=== PATIENT | female | born 1970 | race Caucasian/White ===

== ENCOUNTER 2025-08-31 20:36 | Emergency (ER) | payer BC, SELFPAY ==
[2025-08-31 20:36] VITALS: BMI 28.3
[2025-08-31 21:28] VITALS: BP 166/112; PULSE 76; RESP 18; TEMP 36.6; O2SAT 96
--- NOTE | 2025-08-31 21:36 | PD.EDABDPN ---
ED Abdominal Pain RME/HPI General Chief Complaint: Abdominal Pain Stated complaint: LLQ PAIN Time seen by provider: 08/31/25 20:40 Arrival date/time: 08/31/25 20:36 Source: patient, RN notes reviewed and old records reviewed Mode of arrival: ambulatory Limitations: no limitations RME / HPI RME / HPI narrative: 54yof presents to ED for LLQ abdominal pain that initiated yesterday. Patient reports nausea and x2 episodes of diarrhea since onset. No fever, vomiting, flank pain or urinary symptoms reported. No medications or treatment today. Related Data Home Medications ?Medication ?Instructions ?Recorded ?Confirmed brexpiprazole 0.5 mg tablet 0.5 mg PO HS 10/28/18 10/28/18 (Rexulti) fluoxetine 40 mg capsule 40 mg PO QDAY 10/28/18 10/28/18 Previous Rx's ?Medication ?Instructions ?Recorded prednisone 20 mg tablet 40 mg (2 x 20 mg) PO QDAY #8 tabs 10/28/18 cefdinir 300 mg capsule 300 mg PO BID 5 days #10 caps 09/01/25 ibuprofen 600 mg tablet 600 mg PO Q6H PRN pain #20 tabs 09/01/25 ondansetron 4 mg disintegrating 4 mg PO Q6H PRN nausea and 09/01/25 tablet vomiting #10 tabs Allergies Allergy/AdvReac Type Severity Reaction Status Date / Time No Known Allergies Allergy Verified 10/28/18 13:01 Review of Systems Review of Systems Systems Reviewed: All systems reviewed, normal except as documented Constitutional Constitutional: Denies chills and Denies fever(s) Gastrointestinal Gastrointestinal: Reports abdominal pain, Denies fecal incontinence, Reports loose stools, Reports nausea and Denies vomiting Genitourinary Genitourinary: Denies dysuria, Denies flank pain and Denies hematuria Past Medical History Past Medical History ENDOCRINE: Positive Diabetes Mellitus Type 2 PSYCHO/SOCIAL: Positive Depression Surgical History SURGICAL: Positive Hysterectomy Social History SMOKING STATUS: Never smoker SUBSTANCE USE: does not use ALCOHOL: Never ED Exam General Limitations: Present no limitations General appearance: Present alert and in no apparent distress Head Head exam: Present atraumatic and normocephalic Eye Eye exam: Present normal appearance, PERRL and EOMI ENT ENT exam: Present normal exam and mucous membranes moist Neck Neck exam: Present normal inspection and full ROM Chest Chest inspection: Present normal inspection and symmetric chest wall rise Respiratory Respiratory exam: Present normal lung sounds bilaterally; Absent respiratory distress Cardiovascular Cardiovascular exam: Present regular rate and normal rhythm Abdominal Exam Abdominal exam: Present soft and tenderness (Mild, LLQ); Absent distention, guarding or rebound Extremities Exam Extremities exam: Present normal inspection and full ROM Back Exam Back exam: Absent CVA tenderness (R) or CVA tenderness (L) Neurological Exam Neurological exam: Present alert and oriented X3 Psychiatric Psychiatric exam: Present normal affect and normal mood Skin Skin exam: Present warm, dry, intact and normal color Course Quality Measures none Orders Category Date Time Status CT Screening NOW Care 08/31/25 22:[address] abdomen pelvis w con Stat Exams 08/31/25 22:25 Taken CBC Stat Lab 08/31/25 21:49 Completed CMP [Comprehensive Metabolic Panel] Stat Lab 08/31/25 21:49 Completed Lipase Stat Lab 08/31/25 21:49 Completed UA [Urinalysis] Stat Lab 08/31/25 21:48 Completed HYDROcodone*/APAP 5/325 [[place] 5/325] Med 08/31/25 21:51 Discontinued 1 tab PO X1 ONE Ondansetron Odt [Zofran Odt] Med 08/31/25 21:51 Discontinued 4 mg PO X1 ONE Vital Signs Vital signs: Vital Signs Temperature 97.9 F 08/31/25 21:28 Pulse Rate 76 08/31/25 21:28 Respiratory Rate 18 08/31/25 21:28 Blood Pressure 166/112 H 08/31/25 21:28 Pulse Oximetry (%) 96 08/31/25 21:28 Oxygen Delivery Method Room Air 08/31/25 21:28 Abdominal Pain MDM MDM Narrative MDM Narrative:: 54yof presents to ED for LLQ abdominal pain that initiated yesterday. Patient reports nausea and x2 episodes of diarrhea since onset. No fever, vomiting, flank pain or urinary symptoms reported. No medications or treatment today. Patient updated on labs and imaging. ED workup reassuring. Will treat for UTI. Encouraged close PCP follow-up. Stable for discharge, RTED precautions given. Patient data External records reviewed:: [facility] previous records (10/28/2018 ED visit for sinusitis) Clinical information provided by:: patient Social determinants that could affect healthcare access:: other (specify) (Poor access to healthcare) Patient has the following chronic illnesses:: Depression, diabetes How is presenting disease/condition affected by chronic disease/condition?: uneffected by Evaluation data The following diagnostics were reviewed and interpreted by me:: lab results and radiology exam(s) Lab and/or radiology exams considered but not ordered:: none Interpretation Summary: No leukocytosis No anemia UA +leuks/wbcs CT abd/pelvis: Impression: No acute abnormality in the Abdomen and Pelvis. Subtle indeterminate hypodense lesions in the liver and spleen. Bilateral trace pleural effusions/thickening. Nodular soft tissue lesion in the left breast. Recommend follow-up. Other findings as described above. Report Electronically Signed By: Daniel Hartman 09/01/2025 1:41:57 AM [EST] Medications / Prescriptions Medications or Prescriptions considered but not ordered:: none Medication administrations:: Medication Administration History Discontinued Medications Hydrocodone Bitart/Acetaminophen (Hydrocodone/Apap 5/325 Tablet) 1 tab PO X1 ONE Stop: 08/31/25 21:52 Last Admin: 08/31/25 22:18 Dose: 1 tab Documented By: PETER Ondansetron HCl (Ondansetron Odt 4 Mg Tabrap) 4 mg PO X1 ONE; Protocol Stop: 08/31/25 21:52 Last Admin: 08/31/25 22:18 Dose: 4 mg Documented By: PETER Above medications administered in ED Consultations Consultation(s) initiated? (list below): No Diagnosis Differential diagnosis abdominal pain: other (UTI, diverticulitis, diverticulosis, kidney stone, constipation, gastroenteritis) Most likely diagnosis given after review of the tests above:: UTI Admission Indicated Admission indicated?: not indicated Admission Request Was there a request for admission?: No Disposition Plan Disposition Plan: Discharge Discharge Attestation Discharge Attestation: The patient and all family members were given an opportunity to ask questions and understood the discharge instructions. Discharge instructions specifically effects, indications for sooner follow up or return to the emergency department, and the expected course of current diagnosis. Patient condition: Stable Discharge Plan Plan Patient Disposition: HOME (Self Care) Patient condition on transfer: Stable Prescriptions/Referrals Prescriptions/Med Rec: New cefdinir 300 mg capsule 300 mg PO BID 5 Days Qty: 10 0RF ibuprofen 600 mg tablet 600 mg PO Q6H PRN (Reason: pain) Qty: 20 0RF ondansetron 4 mg tablet,disintegrating 4 mg PO Q6H PRN (Reason: nausea and vomiting) Qty: 10 0RF No Action fluoxetine 40 mg Capsule 40 mg PO QDAY brexpiprazole [Rexulti] 0.5 mg Tablet 0.5 mg PO HS prednisone 20 mg tablet 40 mg PO QDAY Qty: 8 0RF Referrals: Temporary Provider,ED [Physician, Emergency Medicine] - In 1 week Problem List Clinical Impression: UTI (urinary tract infection), Abdominal pain, LLQ, Diarrhea Patient/Caregiver Discharge Instructions Education Materials: Urinary Tract Infections in Women Additional Instructions: Incidental finding on CT of left breast nodule. Please closely follow-up with pcp to schedule a mammogram for further evaluation. Print Language: Danish Stand Alone Forms: [employer] Award Info., Work/School Release, Patient Portal Info Letter PA/VISUAL INSPECTOR Supervising Physician PA/SNOW Supervising Physician: Zora
[2025-08-31 21:52] LABS: Collection Type, Urine Clean Catch
[2025-08-31 22:00] LABS: Bilirubin,Urine Negative (Negative); Blood,Urine Negative (Negative); Clarity,Urine Clear (Clear/Hazy); Color,Urine Lt-Yellow (Lt Yel-Yel); Glucose, Urine Negative (Negative); Ketones,Urine Negative (Negative); Leukocyte Esterase,Urine Positive (Negative); Nitrite,Urine Negative (Negative); PH,Urine 6.5 (5.0-7.0); Protein,Urine Negative (Neg - Trace); RBC,Urine 4 /hpf (0-3); Specific Gravity,Urine 1.023 (1.001-1.035); Squamous Epithelial Cell,Urine 3 /hpf (0-5); Urobilinogen,Urine Negative mg/dL (0.0-1.0); WBC,Urine 10 /hpf (0-5)
[2025-08-31 22:02] LABS: Basophils # (Auto) 0.1 Thou/mm3 (0.0-0.2); Basophils % (Auto) 1 % (0-2.5); Eosinophils # (Auto) 0.3 Thou/mm3 (0.0-0.5); Eosinophils % (Auto) 3 % (0-10); Hematocrit 42.5 % (36.0-46.0); Hemoglobin 13.6 g/dL (12.0-16.0); Immature Granulocytes Auto 0.02 Thou/mm3 (0.00-0.00); Lymphocytes # (Auto) 3.3 Thou/mm3 (1.0-4.8); Lymphocytes % (Auto) 32 % (10-50); Mean Corpuscular HGB Conc 32.0 g/dl (31.0-37.0); Mean Corpuscular Hemoglobin 28.2 pg (25.0-35.0); Mean Corpuscular Volume 88 fL (80-100); Monocytes # (Auto) 0.8 Thou/mm3 (0.0-0.8); Monocytes % (Auto) 8 % (0-12); Neutrophils # (Auto) 5.6 Thou/mm3 (1.8-7.7); Neutrophils % (Auto) 55 % (37-80); Nucleated Red Blood Cell # 0.00 Thou/mm3 (0.00-0.00); Nucleated Red Blood Cell % 0 /100 WBC (0); Platelet Count 296 Thou/mm3 (140-440); RDW Standard Deviation 46.0 fL (36.4-46.3); Red Blood Count 4.83 Miln/mm3 (4.00-5.20); White Blood Count 10.1 Thou/mm3 (3.6-11.0)
[2025-08-31] MEDS: HYDROcodone/APAP 5/325 TABLET 1 TAB PO (22:18)
[2025-08-31] MEDS: ONDANSETRON ODT 4 MG TABRAP PO (22:18)
[2025-08-31 22:23] LABS: Alanine Aminotransferase 70 U/L (10-49); Albumin, Serum 4.6 gm/dL (3.5-5.0); Albumin/Globulin Ratio 2.1 (1.2-2.2); Alkaline Phosphatase 116 U/L (46-116); Anion Gap 8 (7-16); Aspartate Amino Transferase 35 U/L (0-34); BUN/Creatinine Ratio 13 Ratio (12-20); Bilirubin,Total 0.2 mg/dL (0.3-1.2); Blood Urea Nitrogen 10 mg/dL (9-23); Calcium 9.4 mg/dL (8.3-10.6); Calcium (Corrected) 9.4 mg/dL (8.5-10.1); Carbon Dioxide 27.1 mMol/L (20.0-31.0); Chloride 107 mMol/L (98-107); Creatinine (Component) 0.8 mg/dL (0.6-1.3); Estimated Creatinine Clearance 75.0 mL/min (>60); Globulin 2.2 gm/dL (2.3-3.5); Glucose 105 mg/dL (74-106); Lipase 28 U/L (12-53); Osmolality,Calculated 282 (275-295); Potassium 4.2 mMol/L (3.4-5.1); Sodium 142 mMol/L (136-145); Total Protein 6.8 gm/dL (5.7-8.2); eGFR > 60 See Note
--- NOTE | 2025-08-31 22:25 | XR_ITS ---
Examination: CT abdomen with intravenous contrast CT pelvis with intravenous contrast 2-D coronal reconstructions 2-D sagittal reconstructions Date and time of exam: 09/01/2025, 12:29 a.m. INDICATION: Left lower quadrant pain. COMPARISON: Screening mammograms 03/14/2010. Diagnostic left-sided mammogram 04/04/2010. CTDI: vol (mGy) 10.41 DLP: (mGycm) 549 Technique: Multiple axial sections of the abdomen and pelvis have been obtained. 64 slice high-resolution scanner used. 3 mm axial sections have been obtained, post intravenous injection 2-D sagittal, coronal reconstructions obtained. Low dose protocols were performed. One or more of the following dose reduction techniques were used; automated exposure control, adjustment of the mA and/or KV according to patient size, use of iterative reconstruction technique. Findings: Lower chest: No cardiomegaly or pericardial effusion. Mild bilateral subsegmental atelectatic changes are present. Trace bilateral pleural effusions are seen. A solid lobulated mass in the posterior aspect of the lower outer quadrant of the left breast measures 2.5 x 1.7 cm in transaxial dimensions (axial image 5). Liver: Normal variant Zain lobe morphology. Indeterminate very small hypodense focus is present near the interface of hepatic segments 5 and 4B (image 51). Otherwise, smooth margins and homogeneous attenuation. Biliary system: No calcified gallstones or findings concerning for acute cholecystitis or biliary ductal obstruction. Spleen: Normal splenic size. Indeterminate 1 cm hypodense focus within the posterior aspect of the spleen. Pancreas: No apparent infiltrative mass. No main pancreatic duct dilatation. No acute inflammatory changes. Adrenal glands: No significant findings. Kidneys and ureters: No solid mass. No calculi or hydroureteronephrosis. No evidence for acute pyelonephritis. Bladder: No calculi or focal mass. Pelvic organs: Hysterectomy sequela without concerning mass or collection in the surgical bed. Lymph nodes/retroperitoneum: No pathologically enlarged lymph nodes or other masses. No hematoma or other abnormal collections. Vessels: No abdominal aortic aneurysm. Bowel/Peritoneal cavity: Limited assessment of bowel due to segments of underdistention and lack of oral contrast. No contour deforming mass. No obstructive or acute inflammatory changes. Moderate fecal material throughout the colon, greatest at the right hemicolon at time of imaging. Feculent material also noted in distal ileal loops, suggesting some delayed motility. The appendix is not visualized. No ascites or free air. No concerning peritoneal thickening. Abdominal/Pelvic wall: No significant hernia, other mass, or abnormal collection. Musculoskeletal: Multifocal degenerative changes with otherwise no evidence for recent fracture or aggressive lesion. Biphasic thoracolumbar scoliosis noted. IMPRESSION: Negative CT for acute abnormality in the abdomen and pelvis, particularly in the left lower quadrant. Indeterminate left breast mass. Diagnostic work-up is recommended. Indeterminate subcentimeter hypodense liver lesion. Consider multiphasic contrast-enhanced MRI for further evaluation. Indeterminate hypodense splenic lesion statistically likely benign but could also be further characterized with MRI.
--- NOTE | 2025-09-01 01:42 | PRELIM_ITS ---
CT scan of the abdomen and pelvis with intravenous contrast (axial sections with sagittal and coronal reformats) September 01, 2025 0029 hours Clinical History: llq pain No prior study is available for comparison. Findings: There are bilateral trace pleural effusions/thickening. Bibasilar streaky atelectasis is present. A small hiatal hernia is present. There is a nodular soft tissue lesion measuring 2.3 x 1.8 cm in the left breast. There is subtle indeterminate hypodense lesions in the liver and spleen (axial image 36, 51/249). The liver, gallbladder, pancreas, kidneys and adrenals are unremarkable. No evidence of bowel obstruction. The appendix is not definitively visualized; however, there is no evidence of inflammatory process in the right lower quadrant. The urinary bladder is not well distended. There is no free fluid or free air. There is no adenopathy. Mild degenerative changes are identified in the spine. Impression: No acute abnormality in the Abdomen and Pelvis. Subtle indeterminate hypodense lesions in the liver and spleen. Bilateral trace pleural effusions/thickening. Nodular soft tissue lesion in the left breast. Recommend follow-up. Other findings as described above. Report Electronically Signed By: Daniel Hartman 09/01/2025 1:41:57 AM [EST]
[2025-09-01 02:01] VITALS: BP 135/76; PULSE 72; RESP 16; TEMP 36.8; O2SAT 98
== END 2025-09-01 02:02 | disposition home or self-care (01) ==
PROVIDERS: Physician Assistant; Emergency Provider Emergency Medicine
DX: N39.0 Urinary tract infection, site not specified (principal); R10.32 Left lower quadrant pain; R19.7 Diarrhea, unspecified
CPT/HCPCS: 36415; 74177; 80053; 81001; 83690; 85025; 99283; A4649; Q0162; Q9967; A9270

== ENCOUNTER 2025-09-03 13:07 | Emergency (ER) | payer BC, SELFPAY ==
[2025-09-03 13:08] VITALS: BMI 29.2
[2025-09-03 13:16] VITALS: BP 137/89; PULSE 72; RESP 18; TEMP 36.7; O2SAT 98
--- NOTE | 2025-09-03 13:24 | XR_ITS ---
Examination: Pelvic ultrasound, transabdominal, complete Technique: Transabdominal ultrasound of the pelvis performed using grayscale imaging Date and time of exam: 09/03/2025, 2:27 p.m. INDICATION: Pelvic pain for 2 days. History of hysterectomy. COMPARISON: Same day CT abdomen pelvis. FINDINGS: Transabdominal images of the pelvis are partially degraded by bowel gas. The uterus is surgically absent. The ovaries are not visualized. No pelvic mass or free fluid. The partially distended urinary bladder is unremarkable. IMPRESSION: Limited transabdominal views of the pelvis show no evidence for mass or abnormal fluid collection. Hysterectomy there is reidentified.
--- NOTE | 2025-09-03 13:24 | XR_ITS ---
Examination: CT abdomen and pelvis without contrast. Coronal 3-D reconstructions. Sagittal 2-D reconstructions. Date and time of exam: 09/03/2025, 2:02 p.m. INDICATION: Left lower quadrant abdominal pain for 2 days COMPARISON: CT abdomen pelvis 09/01/2025 CTDI: vol (mGy): 10.2 DLP: (mGycm): 602 Technique: Axial images of the abdomen have been obtained, 3 mm slice thickness Intravenous contrast material has not been administered. Low dose protocols were performed. One or more of the following dose reduction techniques were used; automated exposure control, adjustment of the mA and/or KV according to patient size, use of iterative reconstruction technique. Findings: Lack of intravenous contrast limits evaluation of solid organs, vasculature, and lymph nodes. Lower thorax: Fine lung detail is partially obscured by patient respiratory motion. Very mild bilateral subsegmental atelectasis are seen. Minimal bilateral pleural effusions are present. No cardiomegaly or significant pericardial effusion. Very small sliding-type hiatal hernia. Left breast mass is reidentified as previously described. Liver: Morphologically stable liver with Zain lobe and subcentimeter hypodense focus in the right hepatic lobe described on prior CT. Biliary system: No calcified gallstones or findings concerning for acute cholecystitis or biliary ductal obstruction. Spleen: Within normal limits of size. Very small hypodense focus within the spleen as described on prior CT. Pancreas: No contour deforming mass or overt main pancreatic duct dilatation. No evidence for acute inflammation. Adrenal glands: No significant findings. Kidneys: No contour-deforming solid mass. No calculi or hydronephrosis. Bladder: Suboptimal assessment due to under distention but no calculus is seen. Pelvic organs: Hysterectomy sequela without concerning mass or collection in the surgical bed. Bowel/Peritoneal cavity: Limited assessment without IV and oral contrast as well as segments of underdistention. No contour deforming mass. No bowel obstruction. Moderate fecal burden is present throughout the redundant colon at time of imaging. No ascites or free air. No concerning peritoneal thickening. Lymph nodes/retroperitoneum: Multiple mildly prominent mesenteric lymph nodes are seen which may be reactive in etiology. No pathologically enlarged lymph nodes are otherwise observed. Vessels: No abdominal aortic aneurysm. Abdominal/Pelvic wall: No significant hernia or abnormal collection. Musculoskeletal: Multifocal degenerative changes with otherwise no evidence for recent fracture or aggressive lesion. S-shaped scoliosis of the visualized thoracolumbar spine. IMPRESSION: Multiple mildly prominent mesenteric lymph nodes are nonspecific and may be reactive in etiology/reflective of mesenteric adenitis in the appropriate clinical setting. Evidence for acute abnormality in the left lower quadrant to explain for patient's symptoms. Moderate colonic fecal load. Minimal bilateral pleural effusions. Ancillary findings as above, including indeterminate left breast mass, as described in greater detail on the preceding CT abdomen pelvis.
--- NOTE | 2025-09-03 13:25 | PD.EDRME ---
Rapid Medical Screening Exam E Arrival date/time: 09/03/25 13:07 54-year-old female presents emerged from today for months of right side abdominal pain and pelvic pain ongoing for last few days Chief Complaint: Abdominal Pain Vital signs: Vital Signs Temperature 98.1 F 09/03/25 13:16 Pulse Rate 72 09/03/25 13:16 Respiratory Rate 18 09/03/25 13:16 Blood Pressure 137/89 H 09/03/25 13:16 Pulse Oximetry (%) 98 09/03/25 13:16 Oxygen Delivery Method Room Air 09/03/25 13:16 Vital signs reviewed by provider: Yes Exam: On exam patient is tenderness right pelvic and right lower abdomen Clinical Impression: Lab work imaging ordered
[2025-09-03 13:45] LABS: Basophils # (Auto) 0.1 Thou/mm3 (0.0-0.2); Basophils % (Auto) 1 % (0-2.5); Eosinophils # (Auto) 0.3 Thou/mm3 (0.0-0.5); Eosinophils % (Auto) 3 % (0-10); Hematocrit 42.9 % (36.0-46.0); Hemoglobin 13.6 g/dL (12.0-16.0); Immature Granulocytes Auto 0.03 Thou/mm3 (0.00-0.00); Lymphocytes # (Auto) 2.6 Thou/mm3 (1.0-4.8); Lymphocytes % (Auto) 32 % (10-50); Mean Corpuscular HGB Conc 31.7 g/dl (31.0-37.0); Mean Corpuscular Hemoglobin 28.2 pg (25.0-35.0); Mean Corpuscular Volume 89 fL (80-100); Monocytes # (Auto) 0.7 Thou/mm3 (0.0-0.8); Monocytes % (Auto) 9 % (0-12); Neutrophils # (Auto) 4.4 Thou/mm3 (1.8-7.7); Neutrophils % (Auto) 54 % (37-80); Nucleated Red Blood Cell # 0.00 Thou/mm3 (0.00-0.00); Nucleated Red Blood Cell % 0 /100 WBC (0); Platelet Count 290 Thou/mm3 (140-440); RDW Standard Deviation 45.6 fL (36.4-46.3); Red Blood Count 4.83 Miln/mm3 (4.00-5.20); White Blood Count 8.1 Thou/mm3 (3.6-11.0)
[2025-09-03 14:05] LABS: Alanine Aminotransferase 55 U/L (10-49); Albumin, Serum 4.5 gm/dL (3.5-5.0); Albumin/Globulin Ratio 2.1 (1.2-2.2); Alkaline Phosphatase 110 U/L (46-116); Anion Gap 8 (7-16); Aspartate Amino Transferase 27 U/L (0-34); BUN/Creatinine Ratio 11 Ratio (12-20); Bilirubin,Total 0.2 mg/dL (0.3-1.2); Blood Urea Nitrogen 10 mg/dL (9-23); Calcium 9.0 mg/dL (8.3-10.6); Calcium (Corrected) 9.0 mg/dL (8.5-10.1); Carbon Dioxide 29.0 mMol/L (20.0-31.0); Chloride 105 mMol/L (98-107); Creatinine (Component) 0.9 mg/dL (0.6-1.3); Estimated Creatinine Clearance 67.6 mL/min (>60); Globulin 2.1 gm/dL (2.3-3.5); Glucose 160 mg/dL (74-106); Lipase 29 U/L (12-53); Osmolality,Calculated 285 (275-295); Potassium 3.9 mMol/L (3.4-5.1); Sodium 142 mMol/L (136-145); Total Protein 6.6 gm/dL (5.7-8.2); eGFR > 60 See Note
[2025-09-03 15:10] LABS: Collection Type, Urine Clean Catch
[2025-09-03 15:22] LABS: Bilirubin,Urine Negative (Negative); Blood,Urine Negative (Negative); Clarity,Urine Clear (Clear/Hazy); Color,Urine Yellow (Lt Yel-Yel); Culture Indicated,Urine Not Indicated; Glucose, Urine Negative (Negative); Ketones,Urine Negative (Negative); Leukocyte Esterase,Urine Negative (Negative); Nitrite,Urine Negative (Negative); PH,Urine 7.0 (5.0-7.0); Protein,Urine Negative (Neg - Trace); RBC,Urine < 1 /hpf (0-3); Specific Gravity,Urine 1.023 (1.001-1.035); Squamous Epithelial Cell,Urine 1 /hpf (0-5); Urobilinogen,Urine Negative mg/dL (0.0-1.0); WBC,Urine 2 /hpf (0-5)
[2025-09-03 16:27] VITALS: BP 124/84; PULSE 77
--- NOTE | 2025-09-03 16:28 | PD.EDABDPN ---
ED Abdominal Pain RME/HPI General Chief Complaint: Abdominal Pain Stated complaint: RIGHT LOWER ABD PAIN FOR 3 DAYS, SEEN 08/31/25 Time seen by provider: 09/03/25 15:24 Arrival date/time: 09/03/25 13:07 54-year-old female patient came in for evaluation regarding right lower quadrant pain. Onset of symptoms for the last few days severity of symptoms mild. Denies any fever vomiting diarrhea constipation denies any other complaints no medication was taken prior to ER visit. RME / HPI RME / HPI narrative: 09/03/25 13:07 54-year-old female presents emerged from today for months of right side abdominal pain and pelvic pain ongoing for last few days Exam: On exam patient is tenderness right pelvic and right lower abdomen Impression: Lab work imaging ordered Related Data Home Medications ?Medication ?Instructions ?Recorded ?Confirmed brexpiprazole 0.5 mg tablet 0.5 mg PO HS 10/28/18 10/28/18 (Rexulti) fluoxetine 40 mg capsule 40 mg PO QDAY 10/28/18 10/28/18 Previous Rx's ?Medication ?Instructions ?Recorded prednisone 20 mg tablet 40 mg (2 x 20 mg) PO QDAY #8 tabs 10/28/18 cefdinir 300 mg capsule 300 mg PO BID 5 days #10 caps 09/01/25 ibuprofen 600 mg tablet 600 mg PO Q6H PRN pain #20 tabs 09/01/25 ondansetron 4 mg disintegrating 4 mg PO Q6H PRN nausea and 09/01/25 tablet vomiting #10 tabs polyethylene glycol 3350 17 4 g PO QDAY PRN constipation #238 09/03/25 gram/dose oral powder (Miralax) grams Allergies Allergy/AdvReac Type Severity Reaction Status Date / Time No Known Allergies Allergy Verified 09/03/25 13:10 Course Quality Measures none Orders Category Date Time Status CT abdomen pelvis wo con Stat Exams 09/03/25 13:24 Completed US pelvic complete Stat Exams 09/03/25 13:24 Completed CBC Stat Lab 09/03/25 13:36 Completed Comprehensive Metabolic Panel Stat Lab 09/03/25 13:36 Completed Lipase Stat Lab 09/03/25 13:36 Completed UA, C/S IF [Urinalysis, C/S if Indicated] Stat Lab 09/03/25 14:52 Completed Vital Signs Vital signs: Vital Signs Temperature 98.1 F 11/06/25 13:16 Pulse Rate 72 09/03/25 13:16 Respiratory Rate 18 09/03/25 13:16 Blood Pressure 137/89 H 09/03/25 13:16 Pulse Oximetry (%) 98 09/03/25 13:16 Oxygen Delivery Method Room Air 09/03/25 13:16 Abdominal Pain [facility] Narrative [facility] Narrative:: 09/03/25 13:07 54-year-old female patient came in for evaluation regarding right lower quadrant pain. Onset of symptoms for the last few days severity of symptoms mild. Denies any fever vomiting diarrhea constipation denies any other complaints no medication was taken prior to ER visit. Patient's laboratory workup all came back unremarkable. Ultrasound of the pelvis came back normal. CT scan of the abdomen showed multiple incidental finding of lymph nodes in the abdomen, and possible left breast mass, no appendicitis noted. Results discussed with the patient patient was also given a copy of her CT scan for her to closely follow-up with PCP. Patient agrees with the plan. Patient data External records reviewed:: None Clinical information provided by:: patient and family Social determinants that could affect healthcare access:: none Patient has the following chronic illnesses:: None How is presenting disease/condition affected by chronic disease/condition?: no chronic disease Evaluation data The following diagnostics were reviewed and interpreted by me:: lab results and radiology exam(s) Lab and/or radiology exams considered but not ordered:: None Interpretation Summary: See results [facility] Medications / Prescriptions Medications or Prescriptions considered but not ordered:: None Medication administrations:: Plan Consultations Consultation(s) initiated? (list below): No Diagnosis Differential diagnosis abdominal pain: abdominal pain, acute appendicitis and constipation Most likely diagnosis given after review of the tests above:: Abdominal pain Admission Indicated Admission indicated?: not indicated Explain why admission is indicated or not indicated:: Stable Admission Request Was there a request for admission?: No Disposition Plan Disposition Plan: Discharge Discharge Attestation Discharge Attestation: The patient and all family members were given an opportunity to ask questions and understood the discharge instructions. Discharge instructions specifically effects, indications for sooner follow up or return to the emergency department, and the expected course of current diagnosis. Patient condition: Stable Discharge Plan Plan Patient Disposition: HOME (Self Care) Discharge Disposition comment: stable Prescriptions/Referrals Prescriptions/Med Rec: New polyethylene glycol 3350 [Miralax] 17 gram/dose powder 4 g PO QDAY PRN (Reason: constipation) Qty: 238 0RF No Action fluoxetine 40 mg Capsule 40 mg PO QDAY brexpiprazole [Rexulti] 0.5 mg Tablet 0.5 mg PO HS prednisone 20 mg tablet 40 mg PO QDAY Qty: 8 0RF cefdinir 300 mg capsule 300 mg PO BID 5 Days Qty: 10 0RF ibuprofen 600 mg tablet 600 mg PO Q6H PRN (Reason: pain) Qty: 20 0RF ondansetron 4 mg tablet,disintegrating 4 mg PO Q6H PRN (Reason: nausea and vomiting) Qty: 10 0RF Referrals: Cassandra Huitron, PHYSICAL GEOGRAPHER [Primary Care Provider] - In 1 week Problem List Clinical Impression: Abdominal pain, Constipation Patient/Caregiver Discharge Instructions Discharge Activity: activity as tolerated Education Materials: Abdominal Pain, ED Constipation (Adult) Additional Instructions: Thank you for the opportunity for serving you today. You are stable for discharged . You are advised to: Follow-up with your PCP in 1 to 2 days Return to ED for worsening of symptoms Increase oral fluids Take medication as prescribed Increase fiber in the diet. Incidentally the CT scan of your abdomen showed multiple lymph nodes. You need to monitor and your PCP to repeat your CT scan of the abdomen and pelvis in several weeks from now. Print Language: Indian Stand Alone Forms: [employer] Award Info., Patient Portal Info Letter TERRY/SNOW Supervising Physician TERRY/SNOW Supervising Physician: MD Michel
== END 2025-09-03 16:34 | disposition home or self-care (01) ==
PROVIDERS: Nurse Practitioner Primary Care; Emergency Provider Family Medicine; PCP Nurse Practitioner Family
DX: K59.00 Constipation, unspecified (principal); R10.31 Right lower quadrant pain; R10.32 Left lower quadrant pain; R10.20 Pelvic and perineal pain unspecified side
CPT/HCPCS: 36415; 74176; 76856; 80053; 81001; 83690; 85025; 99283